=== PATIENT | female | born 1970 | race Caucasian/White ===

== ENCOUNTER 2017-07-18 18:50 | Emergency (ER) | payer OTHER ==
[2017-07-18 19:14] VITALS: BP 145/98
[2017-07-18] MEDS ORDERED: Ketorolac INJ* 60 MG/2 ML VIAL IM ONE (19:27)
[2017-07-18] MEDS ORDERED: Amoxicillin/Clavulanate TAB* 875 MG PO ONE (19:28)
--- NOTE | 2017-07-18 19:48 | UC ---
Headache HPI - HPI Summary HPI Summary: FIVE DAYS OF HEADACHE, SAW DOCTOR YESTERDAY HAD BLOODWORK DONE. YESTERDAY HAD TEMP OF 101. FACIAL AND EAR PRESSURE. ABLE TO MANAGE WITH TYLENOL AND IBUPROFEN BUT HEADACHE PERSISTS. NO NECK PAIN. - History Of Current Complaint Hx Obtained From: Patient Hx Last Menstrual Period: "YEARS AGO" Onset/Duration: Gradual Onset, Lasting Days, Still Present Onset Of Symptoms: Gradual Initially Headache Was: Moderate Currently Pain Is: Moderate Timing: Constant, Days Character: Dull Location of Headache: Diffuse, Other: - FACIAL Aggravating Factor: Position Change Allevating Factors: Nothing Associated Signs And Symptoms: Positive: Sinus Pressure, Fever. Negative: Dizziness, Seizure, Nausea, Vomiting, Neck Pain, Neck Stiffness, Decreased LOC, Visual Changes - Risk Factors SAH Risk Factors: Negative Meningitis Risk Factors: Negative SDH Risk Factors: Negative Temporal Arteritis Risk Factors: Negative <Octavio Vazquez - Last Filed: 07/18/17 19:44> <Britt Rocha - Last Filed: 07/18/17 20:36> - History Of Current Complaint Chief Complaint: UCHeadache Stated Complaint: HEADACHE Time Seen by Provider: 07/18/17 19:18 - Allergies/Home Medications Allergies/Adverse Reactions: Allergies Allergy/AdvReac Type Severity Reaction Status Date / Time No Known Allergies Allergy Verified 07/18/17 19:14 Home Medications: Home Medications Calcium 600 mg PO DAILY 07/18/17 [History Confirmed 07/18/17] Esomeprazole(NF) [NEXium(NF)] 20 mg PO DAILY 07/18/17 [History Confirmed ] Fluticasone NASAL * [Flonase *] 07/18/17 [History] Ibuprofen TAB* [Advil TAB*] 600 mg PO ONCE PRN 07/18/17 [History Confirmed 07/18] Loratadine [Claritin 10 MG CAP] 10 mg PO DAILY 07/18/17 [History Confirmed 07/18] Multiple Vitamins W/ Minerals [Multivitamin Adults] 1 tab PO DAILY 07/18/17 [ History Confirmed 07/18/17] No-Estrogen Control* 1 tab PO DAILY 07/18/17 [History Confirmed 07/18/17] Pseudoephedrine TAB* [Sudafed TAB*] 60 mg PO ONCE PRN 07/18/17 [History Confirmed 07/18/17] PMH/Surg Hx/FS Hx/Imm Hx Previously Healthy: Yes - Surgical History Surgical History: Yes Surgery Procedure, Year, and Place: OVARIAN CYST REMOVED, BREAST AUGMENTATION 2006 - Family History Known Family History: Negative: Respiratory Disease, Seizure Disorder - Social History Occupation: Employed Full-time Lives: With Family Alcohol Use: None Substance Use Type: None Smoking Status (MU): Never Smoked Tobacco <Octavio Vazquez - Last Filed: 07/18/17 19:44> Review of Systems Constitutional: Fever, Chills Skin: Negative Eyes: Negative ENT: Sinus Congestion, Sinus Pain/Tenderness Respiratory: Negative Cardiovascular: Negative Gastrointestinal: Negative Genitourinary: Negative Motor: Negative Neurovascular: Negative Musculoskeletal: Negative Neurological: Headache Psychological: Negative All Other Systems Reviewed And Are Negative: Yes <Octavio Vazquez - Last Filed: 07/18/17 19:44> Physical Exam Triage Information Reviewed: Yes Appearance: Well-Appearing, Well-Nourished, Pain Distress - MODERATE Vital Signs: Initial Vital Signs Temp 98.7 F 07/18/17 19:07 Pulse 100 07/18/17 19:07 Resp 16 07/18/17 19:07 BP 145/98 07/18/17 19:07 Pulse Ox 100 07/18/17 19:07 Vital Signs Reviewed: Yes Eye Exam: Normal ENT: Positive: Hearing grossly normal, Nasal congestion, TM bulging, TM dull Dental Exam: Normal Neck exam: Normal Neck: Positive: Supple, Nontender, No Lymphadenopathy. Negative: Nuchal Rigidity, Tenderness @ Respiratory Exam: Normal Respiratory: Positive: Chest non-tender, Lungs clear, Normal breath sounds, No respiratory distress, No accessory muscle use Cardiovascular Exam: Normal Cardiovascular: Positive: RRR, No Murmur, Pulses Normal Abdominal Exam: Normal Musculoskeletal Exam: Normal Musculoskeletal: Positive: Strength Intact, ROM Intact Neurological Exam: Normal Psychological Exam: Normal Skin Exam: Normal <Octavio Vazquez - Last Filed: 07/18/17 19:44> Vital Signs: Initial Vital Signs Temp 98.7 F 07/18/17 19:07 Pulse 100 07/18/17 19:07 Resp 16 07/18/17 19:07 BP 145/98 07/18/17 19:07 Pulse Ox 100 07/18/17 19:07 <Britt Rocha - Last Filed: 07/18/17 20:36> Headache Course/Dx - Differential Dx/Diagnosis Differential Diagnosis/HQI/PQRI: Migraine, Sinus Headache, Tension Headache, Viral Syndrome Provider Diagnoses: SINSUSITS; HEADACHE <Octavio Vazquez - Last Filed: 07/18/17 19:44> Discharge <Octavio Vazquez - Last Filed: 07/18/17 19:44> <Britt Rocha - Last Filed: 07/18/17 20:36> - Discharge Plan Condition: Stable Disposition: HOME Prescriptions: Amoxicillin/Clavulanate TAB* [Augmentin TAB 875*] 875 mg PO BID #20 tab Fluticasone NASAL SPRAY 50MCG* [Flonase NASAL SPRAY 50MCG*] 2 spray BOTH NARES DAILY #1 btl Patient Education Materials: Sinusitis (ED), Acute Headache (ED) Referrals: David Stockton MD [Medical Doctor] - Attestation Statement User Type: Provider - I was available for consult. This patient was seen by the YANE. The patient was not presented to, seen by, or examined by me. -Brennan <Britt Rocha - Last Filed: 07/18/17 20:36>
== END 2017-07-18 19:55 | disposition home or self-care (01) ==
LOC: UCEAST 18:50
DX: J32.9 Chronic sinusitis, unspecified (principal); R51 Headache
CPT/HCPCS: 96372; 99202; A9270-GY; G0463; J1885

== ENCOUNTER 2017-09-19 20:15 | Emergency (ER) | payer OTHER ==
[2017-09-19 20:26] VITALS: BP 148/92
[2017-09-19] MEDS ORDERED: methylPREDNISolone 125 MG* 2 ML VIAL IM ONE (20:36)
--- NOTE | 2017-09-19 20:39 | UC ---
Hip/Pelvis Pain - HPI Summary HPI Summary: 47 year old female presents with left hip pain after a long drive. - History Of Current Complaint Chief Complaint: UCLowerExtremity Stated Complaint: HIP PAIN Time Seen by Provider: 09/19/17 20:35 Hx Obtained From: Patient Hx Last Menstrual Period: 09/02/17 Onset/Duration: Sudden Onset Severity Initially: Moderate Severity Currently: Moderate Pain Scale Used: 0-10 Numeric - 8 - Allergies/Home Medications Allergies/Adverse Reactions: Allergies Allergy/AdvReac Type Severity Reaction Status Date / Time No Known Allergies Allergy Verified 09/19/17 20:26 PMH/Surg Hx/FS Hx/Imm Hx - Surgical History Surgical History: Yes Surgery Procedure, Year, and Place: OVARIAN CYST REMOVED, BREAST AUGMENTATION 2006 - Family History Known Family History: Negative: Respiratory Disease, Seizure Disorder - Social History Alcohol Use: Rare Substance Use Type: None Smoking Status (MU): Never Smoked Tobacco Review of Systems Constitutional: Negative Skin: Negative Eyes: Negative ENT: Negative Respiratory: Negative Cardiovascular: Negative Gastrointestinal: Negative Genitourinary: Negative Motor: Negative Neurovascular: Negative Musculoskeletal: Other: - left hip pain Neurological: Negative Psychological: Negative All Other Systems Reviewed And Are Negative: Yes Physical Exam Triage Information Reviewed: Yes Vital Signs: Initial Vital Signs Temp 36.6 C 09/19/17 20:22 Pulse 83 09/19/17 20:22 Resp 18 09/19/17 20:22 BP 148/92 09/19/17 20:22 Pulse Ox 99 09/19/17 20:22 Vital Signs Reviewed: Yes Eye Exam: Normal ENT Exam: Normal Dental Exam: Normal Neck exam: Normal Neck: Positive: 1 Respiratory Exam: Normal Cardiovascular Exam: Normal Abdominal Exam: Normal Musculoskeletal: Positive: Other: - left hip pain Neurological Exam: Normal Psychological Exam: Normal Skin Exam: Normal Hip Injury Course/Dx - Differential Dx/Diagnosis Provider Diagnoses: left hip pain. left greater trochanteric bursitis Discharge - Discharge Plan Condition: Stable Disposition: HOME Prescriptions: Diclofenac 1% GEL (NF) [Voltaren 1% GEL (NF)] 2 gm TOPICAL TID PRN #1 tube PRN Reason: Pain Meloxicam [Mobic] 7.5 mg PO BID PC #30 tab Methocarbamol TAB* [Robaxin 500 MG TAB*] 500 mg PO TID PRN #30 tab PRN Reason: Spasms - Back Patient Education Materials: Hip Bursitis (ED) Referrals: Meli Alonso MD [Primary Care Provider] - [facility] [place] Physical therapy,PT [Medical Doctor] -
== END 2017-09-19 21:15 | disposition home or self-care (01) ==
LOC: UCEAST 20:15
DX: M70.62 Trochanteric bursitis, left hip (principal); M25.552 Pain in left hip
CPT/HCPCS: 96372; 99212; G0463; J2930

== ENCOUNTER 2017-12-22 10:33 | Emergency (ER) | payer OTHER ==
--- NOTE | 2017-12-22 12:52 | UC ---
Hip/Pelvis Pain - HPI Summary HPI Summary: pain radiating down left si joint in to buttock and leg-waxing and waning for the past 7 days, no relief with Robaxin did not try Mobic-- - History Of Current Complaint Chief Complaint: UCBackPain Stated Complaint: LEG/BUTTOCK PAIN Time Seen by Provider: 12/22/17 12:38 Hx Obtained From: Patient Hx Last Menstrual Period: [id number] ?: No Mechanism Of Injury: none Onset/Duration: Sudden Onset, Lasting Days, Still Present Timing: Constant Severity Initially: Mild Severity Currently: Mild Pain Intensity: 2 Pain Scale Used: 0-10 Numeric Location: Discrete At: - left si joint, buttock, left thigh Character Of Pain: Sharp, Aching Aggravating Factor(s): Movement Alleviating Factor(s): Nothing Associated Signs And Symptoms: Positive: Negative - Allergies/Home Medications Allergies/Adverse Reactions: Allergies Allergy/AdvReac Type Severity Reaction Status Date / Time latex Allergy Rash Verified 12/22/17 11:13 Home Medications: Home Medications Control 1 tab PO DAILY 12/22/17 [History Confirmed 12/22/17] PMH/Surg Hx/FS Hx/Imm Hx Previously Healthy: No GI/ History: Gastroesophageal Reflux - Surgical History Surgical History: Yes Surgery Procedure, Year, and Place: OVARIAN CYST REMOVED, BREAST AUGMENTATION 2006. Gallbladder Removed - Family History Known Family History: Positive: None Negative: Respiratory Disease, Seizure Disorder - Social History Occupation: Employed Part-time Lives: With Family Alcohol Use: None Substance Use Type: None Smoking Status (MU): Never Smoked Tobacco Review of Systems Constitutional: Negative Skin: Negative Eyes: Negative ENT: Negative Respiratory: Negative Cardiovascular: Negative Gastrointestinal: Negative Genitourinary: Negative Motor: Negative Neurovascular: Negative Musculoskeletal: Arthralgia, Myalgia Neurological: Negative Psychological: Negative Is Patient Immunocompromised?: No All Other Systems Reviewed And Are Negative: Yes Physical Exam Triage Information Reviewed: Yes Appearance: Well-Appearing, Well-Nourished, Pain Distress - mild Vital Signs: Initial Vital Signs Temp 98.2 F 12/22/17 11:07 Pulse 86 12/22/17 11:07 Resp 18 12/22/17 11:07 BP 164/94 12/22/17 11:07 Pulse Ox 98 12/22/17 11:07 Vital Signs Reviewed: Yes Eye Exam: Normal Eyes: Positive: Conjunctiva Clear ENT Exam: Normal ENT: Positive: Normal ENT inspection, Hearing grossly normal. Negative: Nasal congestion, Nasal drainage, Tonsillar swelling, Tonsillar exudate, Trismus, Muffled voice Dental Exam: Normal Neck exam: Normal Neck: Positive: Supple, Nontender Respiratory Exam: Normal Respiratory: Positive: No respiratory distress, No accessory muscle use Cardiovascular Exam: Normal Cardiovascular: Positive: RRR, Pulses Normal, Brisk Capillary Refill Musculoskeletal Exam: Normal Musculoskeletal: Positive: Strength Intact, ROM Intact, No Edema Neurological Exam: Normal Neurological: Positive: Alert, Muscle Tone Normal Psychological Exam: Normal Skin Exam: Normal Hip Injury Course/Dx - Course Course Of Treatment: Increase robaxin, medrol dose shelby refer to ortho ( and then possible pain clinic for steriod injects) follow as planned - Differential Dx/Diagnosis Provider Diagnoses: Left Sciatic pain Discharge - Discharge Plan Condition: Stable Disposition: HOME Prescriptions: Meloxicam [Mobic] 7.5 mg PO BID PC #30 tab Methocarbamol TAB* [Robaxin 500 MG TAB*] 750 mg PO QID PRN #30 tab PRN Reason: muscle spasm Methylprednisolone [Medrol Dosepak 4 MG*] 4 mg PO .SEE SHELBY INSTRUCTION #1 shelby Patient Education Materials: Sciatica (ED), Hypertension (ED), Lower Back Exercises (ED) Referrals: Meli Alonso MD [Primary Care Provider] - 1 Week Jermaine Reyes MD [Medical Doctor] - 3 Days
[2017-12-22 13:17] VITALS: BP 156/84
== END 2017-12-22 13:23 | disposition home or self-care (01) ==
LOC: UCEAST 10:33
DX: M54.32 Sciatica, left side (principal); K21.9 Gastro-esophageal reflux disease without esophagitis
CPT/HCPCS: 99212; G0463

== ENCOUNTER 2020-08-10 13:04 | Inpatient (IN) ==
[2020-08-10] MEDS ORDERED: NS 0.9% 1000 ml BAG 1,000 ML IV ONE (14:53)
[2020-08-10 15:47] LABS: ABS Basophils 0.1 10^3/ul (0-0.2); ABS Eosinophils 0.1 10^3/ul (0-0.6); ABS Lymphocytes 2.4 10^3/ul (1.0-4.8); ABS Monocytes 0.7 10^3/ul (0-0.8); ABS Neutrophils 5.9 10^3/ul (1.5-7.7); Eosinophil % 1.2 %; Hematocrit 41 % (35-47); Hemoglobin 13.9 g/dL (12.0-16.0); Lymphocyte % 26.2 %; Mean Corpuscular HGB Conc 34 g/dL (31-36); Mean Corpuscular Hemoglobin 30 pg (27-31); Mean Corpuscular Volume 88 fL (80-97); Mean Platelet Volume 8.2 fL (7.4-10.4); Platelet Count 295 10^3/uL (150-450); Red Blood Count 4.68 10^6 /uL (3.70-4.87); Red Cell Distribution Width 16 % (10-15); White Blood Count 9.2 10^3/uL (3.5-10.8)
[2020-08-10] MEDS ORDERED: Iohexol 350 (CONTRAST) 500 ML MDV IV ONE (16:20)
[2020-08-10 16:27] LABS: BUN/Creatinine Ratio 12.1 (8-20); C Reactive Protein 9.59 mg/L (<8.01); Calcium 10.1 mg/dL (8.6-10.3); EGFR African American 72.4 (>60); EGFR Non-African American 59.9 (>60); Potassium 3.8 mmol/L (3.5-5.0)
[2020-08-10] MEDS ORDERED: Gadoteridol (CONTRAST) 279.3 MG/ML 10 ML IV ONE (16:48)
[2020-08-10 18:10] LABS: Erythrocyte Sed Rate 24 mm/Hr (0-19)
[2020-08-10] MEDS ORDERED: Ondansetron ODT 4 mg TAB 4 MG TAB SL PRN (19:32)
[2020-08-11 06:35] LABS: BUN/Creatinine Ratio 12.9 (8-20); Calcium 9.2 mg/dL (8.6-10.3); EGFR African American 86.4 (>60); EGFR Non-African American 71.4 (>60); Potassium 3.6 mmol/L (3.5-5.0)
[2020-08-11 06:37] LABS: ABS Basophils 0.1 10^3/ul (0-0.2); ABS Eosinophils 0.2 10^3/ul (0-0.6); ABS Lymphocytes 2.4 10^3/ul (1.0-4.8); ABS Monocytes 0.6 10^3/ul (0-0.8); ABS Neutrophils 4.6 10^3/ul (1.5-7.7); Eosinophil % 2.4 %; Hematocrit 36 % (35-47); Hemoglobin 12.7 g/dL (12.0-16.0); Lymphocyte % 30.4 %; Mean Corpuscular HGB Conc 35 g/dL (31-36); Mean Corpuscular Hemoglobin 31 pg (27-31); Mean Corpuscular Volume 87 fL (80-97); Mean Platelet Volume 8.6 fL (7.4-10.4); Platelet Count 230 10^3/uL (150-450); Red Blood Count 4.15 10^6 /uL (3.70-4.87); Red Cell Distribution Width 16 % (10-15); White Blood Count 7.9 10^3/uL (3.5-10.8)
[2020-08-11 07:29] LABS: INR 1.14 (0.82-1.09)
[2020-08-11 07:54] LABS: Rheumatoid Factor < 10 IU/mL (<15)
[2020-08-11 08:14] LABS: Magnesium 2.1 mg/dL (1.9-2.7)
[2020-08-11] MEDS: Fluticasone NASAL SPRAY 50MCG 16 gm SPRAY BTL INTRANASAL SCH (08:48)
[2020-08-11] MEDS ORDERED: Enoxaparin 40 MG/0.4 ML SYR SUBCUT SCH (10:00)
[2020-08-11 11:09] LABS: HIV 4th Generation Nonreactive (Nonreactive)
[2020-08-11] MEDS ORDERED: methylPREDNISolone SOD SUCC 1000 MG ML VIAL IVPB SCH (12:00)
[2020-08-11] MEDS ORDERED: Gadoteridol (CONTRAST) 279.3 MG/ML 10 ML IV ONE (15:09)
[2020-08-11] MEDS: methylPREDNISolone SOD SUCC 1,000 MG in NS 0.9% 250 ml 250 ML IVPB SCH (15:46)
[2020-08-12] MEDS ORDERED: NS 0.9% 250 ml 250 ML ONE (08:40)
[2020-08-12] MEDS: methylPREDNISolone SOD SUCC 1,000 MG in NS 0.9% 250 ml 250 ML IVPB SCH (08:49)
[2020-08-12 10:53] LABS: Body Fluid Source Cerebral Spinal
[2020-08-12] MEDS: Fluticasone NASAL SPRAY 50MCG 16 gm SPRAY BTL INTRANASAL SCH (10:56)
[2020-08-12 11:47] LABS: CSF Glucose 108 mg/dL (40-70)
[2020-08-12 11:49] LABS: Body Fluid Mono 5 %
[2020-08-12 15:23] LABS: Sm (Smith) IgG Antibody <0.2 U; U1 RNP IgG Autoabs <0.2 U
[2020-08-12 15:34] LABS: SS-A/Ro Antibody <0.2 U; SS-B/La Antibody <0.2 U
[2020-08-12] MEDS: Enoxaparin 40 MG/0.4 ML SYR SUBCUT SCH ×2 (20:59→21:04)
[2020-08-13] MEDS: Fluticasone NASAL SPRAY 50MCG 16 gm SPRAY BTL INTRANASAL SCH (08:57)
[2020-08-13] MEDS: methylPREDNISolone SOD SUCC 1,000 MG in NS 0.9% 250 ml 250 ML IVPB SCH (08:57)
[2020-08-13 11:09] VITALS: BP 135/84
[2020-08-13 20:39] LABS: HSV 1 PCR, CSF Negative (Negative); HSV 2 PCR, CSF Negative (Negative)
[2020-08-14 00:59] LABS: Copper Level 1.78 mcg/mL (0.75-1.45)
[2020-08-14 09:24] LABS: Methylmalonic Acid 0.11 nmol/mL (<=0.40)
[2020-08-14 15:22] LABS: CSF VDRL Negative (Negative)
[2020-08-14 15:54] LABS: Oligoclonal Proteins Interpret 10 bands (<2)
[2020-08-14 16:09] LABS: CSF West Nile Virus RNA (PCR) Negative (Negative); West Nile Virus Source CSF
[2020-08-19 22:23] LABS: Albumin 4430 mg/dL; CSF Albumin 15.8 mg/dL (<=27.0); CSF Immunoglobulin G Synthesis 3.85 mg/24 h (<=12); Immunoglobulin G 1160 mg/dL (767 - 1590)
== END 2020-08-13 12:50 | disposition home or self-care (01) | DRG 93 ==
LOC: ED 13:04 → MED 13:04
PROVIDERS: ADMIT Internal Medicine; ATTEND Internal Medicine